=== PATIENT | male | born 1955 | race Two or more races ===

== ENCOUNTER 2019-01-30 06:44 | Outpatient (CLI) | payer OTHER ==
[2019-01-30] MEDS ORDERED: ASA81 MG (12:17)
== END 2019-01-30 07:03 | disposition home or self-care (01) ==
LOC: LAB 06:44
DX: K40.90 Unilateral inguinal hernia, without obstruction or gangrene, not specified as recurrent (principal); Z01.810 Encounter for preprocedural cardiovascular examination; Z01.811 Encounter for preprocedural respiratory examination; Z01.812 Encounter for preprocedural laboratory examination

== ENCOUNTER 2019-02-06 07:00 | Day surgery (SDC) | payer OTHER ==
[~2019-02-06 07:00] MED LIST: ASA81 MG
== END 2019-02-06 17:44 | disposition home or self-care (01) ==
LOC: CIR.AMB 07:00
DX: K40.90 Unilateral inguinal hernia, without obstruction or gangrene, not specified as recurrent (principal)